=== PATIENT | female | born 1950 | race Caucasian/White ===

== ENCOUNTER → 2018-05-06 | Outpatient (CLI) | payer MEDICARE, BC | LOC: RAD 12:50 → MAMMO 13:45 | DX: Z13.820 Encounter for screening for osteoporosis (principal); M85.89 Other specified disorders of bone density and structure, multiple sites ==

== ENCOUNTER → 2018-05-06 | Outpatient (CLI) | payer MEDICARE, BC | LOC: MAMMO 12:52 | DX: Z12.31 Encounter for screening mammogram for malignant neoplasm of breast (principal) ==

== ENCOUNTER → 2019-05-20 | Outpatient (CLI) | payer MEDICARE, BC | LOC: MAMMO 10:43 | DX: Z12.31 Encounter for screening mammogram for malignant neoplasm of breast (principal); N63.0 Unspecified lump in unspecified breast ==

== ENCOUNTER → 2019-05-24 | Outpatient (CLI) | payer MEDICARE, BC | LOC: MAMMO 08:01 | DX: N63.11 Unspecified lump in the right breast, upper outer quadrant (principal) ==

== ENCOUNTER → 2019-11-08 | Outpatient (CLI) | payer MEDICARE, BC | LOC: RAD 07:21 | DX: N63.10 Unspecified lump in the right breast, unspecified quadrant (principal) ==

== ENCOUNTER → 2020-12-12 | Outpatient (CLI) | payer MEDICARE, BC | LOC: MAMMO 08:25 | DX: Z12.31 Encounter for screening mammogram for malignant neoplasm of breast (principal) ==

== ENCOUNTER → 2020-12-12 | Outpatient (CLI) | payer MEDICARE, BC | LOC: RAD 08:25 → MAMMO 09:15 | DX: Z13.820 Encounter for screening for osteoporosis (principal); M81.0 Age-related osteoporosis without current pathological fracture ==

== ENCOUNTER → 2021-12-19 | Outpatient (CLI) | payer MEDICARE, BC | LOC: MAMMO 13:54 | DX: Z12.31 Encounter for screening mammogram for malignant neoplasm of breast (principal) ==